=== PATIENT | male | born 1960 | race Caucasian/White ===

== ENCOUNTER 2020-09-14 14:20 | Outpatient (CLI) | payer BC | END 2020-09-14 14:21 | disposition home or self-care (01) | LOC: BICRAD 14:20 | PROVIDERS: ATTEND Specialist | DX: R06.02 Shortness of breath (principal); R06.00 Dyspnea, unspecified | CPT/HCPCS: 71046 ==

== ENCOUNTER 2023-01-10 09:36 | Outpatient (CLI) | payer BC | END 2023-01-10 09:37 | disposition home or self-care (01) | LOC: BICRAD 09:36 | PROVIDERS: ATTEND Specialist | DX: M25.561 Pain in right knee (principal); M22.91 Unspecified disorder of patella, right knee; M17.11 Unilateral primary osteoarthritis, right knee ==